=== PATIENT | female | born 1950 | race Caucasian/White ===

== ENCOUNTER 2017-12-20 14:09 | Emergency (ER) | payer MEDICARE, BC ==
[~2017-12-20] VITALS: Ht 165.1 cm; Wt 64.0 kg
[2017-12-20 14:15] VITALS: BP 211/97; PULSE 88; RESP 16; TEMP 97.9; O2SAT 97
[2017-12-20] MEDS ORDERED: LEVO50TA53 PO (14:32)
[2017-12-20] MEDS ORDERED: PANT40TA3 PO (14:32)
[2017-12-20] MEDS ORDERED: EZET10 PO (14:32)
--- NOTE | 2017-12-20 14:54 | PD ---
HPI Chief Complaint: Chest Pain Time Seen by Provider: 14:41 Travel History International Travel<30 days: No Contact w/Intl Traveler<30days: No Traveled to known affect area: No History of Present Illness HPI This patient complains of chest pain. Duration 1 day. She has had 5 separate spells of pain. Each consists of a sharp stabbing left sided chest pain that lasts 2 seconds and resolves. Symptoms are not exertional. No shortness of breath. No cough or fever. She does have history of spontaneous pneumothorax. She quit smoking 20 years ago. No other cardiac or pulmonary disease history. Symptom severity at this time is mild. She is pain-free. She is breathing well. She did fly here from [place] this morning. No exacerbating factors. No alleviating factors PFSH Past Medical History Cardiovascular Problems: No Diminished Hearing: No GERD: Yes Thyroid Disease: Yes Tetanus Vaccination: Unknown Influenza Vaccination: Yes ?: Not Past Surgical History Section: Yes Thoracic Surgery: Yes (chest tube for "calapsed lung") Social History Alcohol Use: Yes (2 drinks daily) Tobacco Use: No Substance Use: No Allergies-Medications (Allergen,Severity, Reaction): Coded Allergies: No Known Allergies (Unverified , 12/20/17) Reported Meds & Prescriptions Reported Meds & Active Scripts Active Reported Pantoprazole (Pantoprazole Sodium) 40 Mg Tab 40 Mg PO DAILY Zetia (Ezetimibe) 10 Mg Tab 10 Mg PO DAILY Levoxyl (Levothyroxine Sodium) 50 Mcg Tab 50 Mcg PO DAILY Review of Systems General / Constitutional: No: Fever Eyes: No: Visual changes HENT: No: Headaches Cardiovascular: Positive: Chest Pain or Discomfort Respiratory: No: Shortness of Breath Gastrointestinal: No: Abdominal Pain Genitourinary: No: Dysuria Musculoskeletal: No: Pain Skin: No Rash Neurologic: No: Weakness Psychiatric: No: Depression Endocrine: No: Polydipsia Hematologic/Lymphatic: No: Easy Bruising Physical Exam Narrative GENERAL: Well-nourished, well-developed patient in no apparent distress. SKIN: Focused skin assessment reveals no rash and nodules. Skin is Warm and dry. HEAD: Atraumatic. Normocephalic. EYES: Pupils equal and round. No scleral icterus. No injection or drainage. ENT: No nasal bleeding or discharge. Mucous membranes pink and moist. NECK: Trachea midline. No JVD. CARDIOVASCULAR: Regular rate and rhythm. No murmur appreciated. RESPIRATORY: No accessory muscle use. Clear to auscultation. Breath sounds equal bilaterally. GASTROINTESTINAL: Abdomen soft, non-tender, nondistended. Hepatic and splenic margins not palpable. MUSCULOSKELETAL: No obvious deformities. No clubbing. No cyanosis. No edema. NEUROLOGICAL: Awake and alert. No obvious cranial nerve deficits. Motor grossly within normal limits. Normal speech. PSYCHIATRIC: Appropriate mood and affect; insight and judgment normal. Data Data Last Documented VS Vital Signs Date Time Temp Pulse Resp B/P (MAP) Pulse Ox O2 Delivery O2 Flow Rate FiO2 12/20/17 15:05 90 16 98 Room Air 12/20/17 15:04 178/89 (118) 12/20/17 14:15 97.9 Orders Orders Chest, Single Ap (12/20/17 ) Clonidine (Catapres) (12/20/17 15:00) MDM Medical Decision Making Medical Screen Exam Complete: Yes Emergency Medical Condition: Yes Medical Record Reviewed: Yes Differential Diagnosis ACS, PE, pneumothorax, musculoskeletal pain Narrative Course I have reviewed the patient's electronic medical record. I reviewed her EKG which shows sinus rhythm and no ST elevation I reviewed her chest x-ray which is normal Presentation is not consistent with PE, despite the fact that it started while flying, she has 2 second spells of pain that resolved and no shortness of breath or tachycardia and feels well now. I do not feel she requires extensive workup to rule out PE at this time Her room air saturation is 100% We took 3 separate blood pressures and they average over 200 systolic. I gave her a dose of 0.1 clonidine and will reassess Recheck blood pressure 170 systolic Advised her to check and record her daily and follow with primary care Diagnosis Primary Impression: Non-cardiac chest pain Additional Impression: Accelerated hypertension Additional Instructions: The patient was advised to follow up with their physician and return if they worsen. Check and record blood pressure daily Med/Other Pt SpecificInfo: Other Disposition: 01 DISCHARGE HOME Condition: Stable Florencio Roper MD Dec 20, 2017 14:54
[2017-12-20] MEDS ORDERED: cloNIDine HCL 0.2 MG TAB PO ONE (15:00)
[2017-12-20 15:04] VITALS: BP 178/89; PULSE 88; RESP 16; O2SAT 98
--- NOTE | 2017-12-20 15:27 | RADRPT ---
EXAM DATE/TIME: 12/20/2017 14:58 [facility] COMPARISON: No previous studies available for comparison. INDICATIONS : Chest pain. MEDICAL HISTORY : Chronic obstructive pulmonary disease. SURGICAL HISTORY : None. ENCOUNTER: Initial ACUITY: 1 day PAIN SCORE: 10 LOCATION: Bilateral chest FINDINGS: A single view of the chest demonstrates the lungs to be symmetrically aerated without evidence of mas s, infiltrate or effusion. The cardiomediastinal contours are unremarkable. Osseous structures are intact. CONCLUSION: No acute disease. Jaspal Blanton MD on December 20, 2017 at 15:25 Board Certified Radiologist. This report was verified electronically.
[2017-12-20 15:46] VITALS: BP 151/79; PULSE 79; RESP 16; O2SAT 95
--- NOTE | 2017-12-21 13:57 | EKG ---
Date Performed: 12/20/2017 Time Performed: 14:23:39 PTAGE: 67 years EKG: Sinus rhythm WITH SINUS ARRHYTHMIA POSSIBLE LEFT ATRIAL ENLARGEMENT BORDERLINE ECG NO PREVIOUS TRACING DOCTOR: Terri Klein Interpretating Date/Time 12/21/2017 13:52:23
== END 2017-12-20 16:39 | disposition home or self-care (01) ==
LOC: PHED 14:09
DX: R07.89 Other chest pain (principal); I10 Essential (primary) hypertension; K21.9 Gastro-esophageal reflux disease without esophagitis; E07.9 Disorder of thyroid, unspecified; Z87.891 Personal history of nicotine dependence
CPT/HCPCS: 71045; 93005; 99284